=== PATIENT | male | born 1965 | race Caucasian/White ===

== ENCOUNTER 2017-01-27 06:55 | Day surgery (SDC) | payer OTHER ==
[~2017-01-27] VITALS: Ht 170.2 cm; Wt 120.0 kg
[~2017-01-27 06:55] MED LIST: Ecotrin PO; HYDROCODON-ACE1 EAC7 PO; METAXALONE800 MG PO; MOTRIN800 MG PO; PRAVACHOL40 MG PO; TYLENOL EXTRA500 MG PO; ULTRAM50 MG PO; ZANTAC300 MG PO
[2017-01-27 07:12] VITALS: BP 148/67
[2017-01-27 11:18] VITALS: BP 118/81
[2017-01-27 12:16] VITALS: BP 124/83
== END 2017-01-27 12:32 | disposition home or self-care (01) ==
LOC: SDC 06:55
PROC: 0SBD4ZZ Excision of Left Knee Joint, Percutaneous Endoscopic Approach (ICD-10-PCS; principal; 2017-01-27)
DX: S83.242A Other tear of medial meniscus, current injury, left knee, initial encounter (principal); M17.12 Unilateral primary osteoarthritis, left knee; X58.XXXA Exposure to other specified factors, initial encounter; Y93.66 Activity, soccer; K21.9 Gastro-esophageal reflux disease without esophagitis; J45.909 Unspecified asthma, uncomplicated; Z82.49 Family history of ischemic heart disease and other diseases of the circulatory system; Z82.61 Family history of arthritis
CPT/HCPCS: J1100; J1885; J2250; J2405; J2795; J3010

== ENCOUNTER 2017-02-01 04:43 | Inpatient (IN) | payer OTHER ==
[~2017-02-01] VITALS: Ht 172.7 cm; Wt 81.9 kg
[2017-02-01 05:17] LABS: CHLORIDE 103 mEq/L (99-109); POTASSIUM 3.9 mEq/L (3.7-5.4); SODIUM 138 mEq/L (136-147)
[2017-02-01 05:18] LABS: GLUCOSE 128 mg/dL (70-99)
[2017-02-01 05:20] LABS: ANION GAP 7 MEQ/L (2-14)
[2017-02-01 05:22] LABS: GFR ESTIMATE (CALCULATED) 36 mL/min/
[2017-02-01 05:23] LABS: UREA NITROGEN (BUN) 18 mg/dL (9-23)
[2017-02-01 05:27] LABS: HEMATOCRIT 47.5 % (38.0-50.0); MCH 29.9 PG (29.0-34.0); MCHC 34.3 G/DL (30.0-36.0); MCV 87.2 FL (86-99); MEAN PLAT.VOLUME 9.7 uM^3 (9.0-12.4); PLATELET COUNT 252 K/uL (156-360); RBC DIS.WIDTH-CV 13.1 % (11.8-14.6); RBC DIS.WIDTH-SD 41.5 % (39-53); RED BLOOD COUNT 5.45 M/uL (4.00-5.50); WHITE BLOOD COUNT 10.1 K/uL (4.1-10.2)
[2017-02-01 05:32] LABS: TOTAL BILIRUBIN 1.2 mg/dL (0.0-1.0)
[2017-02-01 05:33] LABS: ALKALINE PHOSPHATASE 60 IU/L (3-129)
[2017-02-01 05:35] LABS: DIRECT BILIRUBIN 0.4 mg/dL (0.0-0.3)
[2017-02-01 05:36] LABS: LIPASE 759 U/L (1.0-51.0)
[2017-02-01 06:26] LABS: ADD MIUA? NO; BILIRUBIN NEGATIVE; BLOOD NEGATIVE; COLOR YELLOW ((YELLOW)); GLUCOSE (STRIP) NEGATIVE; KETONES NEGATIVE; LEUKOCYTES NEGATIVE; NITRITE NEGATIVE; PROTEIN (STRIP) NEGATIVE; SPECIFIC GRAVITY 1.014 (1.000-1.030); UCUL ADDED? NO; UROBILINOGEN 0.2 MG/DL (0.2-1.0)
[2017-02-01 07:29] LABS: SAMPLE HEMOLYSIS CHECK 0; SAMPLE ICTERIC CHECK 0; SAMPLE LIPEMIA CHECK 0
[2017-02-01 07:40] LABS: SERUM ETHYL ALCOHOL < 10 mg/dL
[2017-02-01 07:51] VITALS: BP 132/85
[2017-02-01 11:37] VITALS: BP 137/80
[2017-02-01] MEDS ORDERED: ROXICODONE5 MG PO (13:30)
[2017-02-01] MEDS ORDERED: TAMSULOSIN HCL0.4 MG PO (13:32)
[2017-02-01] MEDS ORDERED: PRAVACHOL40 MG PO (13:35)
[2017-02-01] MEDS ORDERED: TORADOL10 MG PO ×2 (13:41→13:42)
[2017-02-01 16:25] VITALS: BP 178/91
[2017-02-01 16:44] VITALS: BP 142/86
[2017-02-01 20:22] LABS: INTERNAL CONTROL VALID? YES
[2017-02-01 20:34] VITALS: BP 129/74
[2017-02-01 20:56] LABS: C DIFF TOXIN POSITIVE (NEGATIVE)
[2017-02-01 21:08] LABS: PROBE CHECK PASS
[2017-02-02 00:15] VITALS: BP 123/75
[2017-02-02 06:26] LABS: HEMATOCRIT 44.9 % (38.0-50.0); MCH 30.2 PG (29.0-34.0); MCHC 34.5 G/DL (30.0-36.0); MCV 87.5 FL (86-99); MEAN PLAT.VOLUME 9.5 uM^3 (9.0-12.4); PLATELET COUNT 222 K/uL (156-360); RBC DIS.WIDTH-CV 12.8 % (11.8-14.6); RBC DIS.WIDTH-SD 41.1 % (39-53); RED BLOOD COUNT 5.13 M/uL (4.00-5.50); WHITE BLOOD COUNT 8.2 K/uL (4.1-10.2)
[2017-02-02 06:49] LABS: ALKALINE PHOSPHATASE 55 IU/L (3-129); ANION GAP 7 MEQ/L (2-14); CHLORIDE 102 MEQ/L (99-109); GFR ESTIMATE (CALCULATED) 46 mL/min/; GLUCOSE 100 mg/dL (70-99); SAMPLE HEMOLYSIS CHECK 0; SAMPLE ICTERIC CHECK 0; SAMPLE LIPEMIA CHECK 0; SODIUM 136 MEQ/L (136-147); TOTAL BILIRUBIN 1.3 MG/DL (0.0-1.0); UREA NITROGEN (BUN) 15 mg/dL (9-23)
[2017-02-02 07:53] VITALS: BP 132/72
[2017-02-02 16:13] VITALS: BP 143/81
[2017-02-03 01:31] VITALS: BP 126/71
[2017-02-03 06:58] LABS: MCH 29.8 PG (29.0-34.0); MCHC 34.2 G/DL (30.0-36.0); MCV 87.2 FL (86-99); MEAN PLAT.VOLUME 10.1 uM^3 (9.0-12.4); PLATELET COUNT 236 K/uL (156-360); RBC DIS.WIDTH-CV 12.6 % (11.8-14.6); RBC DIS.WIDTH-SD 40.2 % (39-53); RED BLOOD COUNT 4.93 M/uL (4.00-5.50); WHITE BLOOD COUNT 7.8 K/uL (4.1-10.2)
[2017-02-03 07:09] VITALS: BP 172/101
[2017-02-03 07:26] LABS: ALKALINE PHOSPHATASE 51 IU/L (3-129); ANION GAP 7 MEQ/L (2-14); CHLORIDE 106 MEQ/L (99-109); GFR ESTIMATE (CALCULATED) 46 mL/min/; GLUCOSE 90 mg/dL (70-99); LIPASE 15 U/L (1.0-51.0); SAMPLE HEMOLYSIS CHECK 0; SAMPLE ICTERIC CHECK 0; SAMPLE LIPEMIA CHECK 0; SODIUM 138 MEQ/L (136-147); UREA NITROGEN (BUN) 19 mg/dL (9-23)
[2017-02-03 07:27] LABS: TOTAL BILIRUBIN 0.9 MG/DL (0.0-1.0)
[2017-02-03 16:43] VITALS: BP 138/72
[2017-02-03 22:55] VITALS: BP 128/68
[2017-02-04 07:02] VITALS: BP 158/62
[2017-02-04] MEDS ORDERED: ZOFRAN8 MG PO (10:55)
[2017-02-04] MEDS ORDERED: METRONIDAZOLE500 MG PO (10:55)
[2017-02-04] MEDS ORDERED: TAMSULOSIN HCL0.4 MG PO (10:55)
[2017-02-04] MEDS ORDERED: TORADOL10 MG PO (10:55)
[2017-02-04 11:03] LABS: WHITE BLOOD COUNT 12.6 K/uL (4.1-10.2)
[2017-02-04 11:04] LABS: EOSINOPHIL (%) 0.1 % (0-5); HEMATOCRIT 46.5 % (38.0-50.0); IMMATURE GRANULOCYTE (%) 0.6 % (0.0-0.7); IMMATURE GRANULOCYTE COUNT 0.1 K/uL; INSTRUMENT ABS NEUTROPHIL CT 9.5 K/uL; MCH 30.8 PG (29.0-34.0); MCHC 35.3 G/DL (30.0-36.0); MCV 87.2 FL (86-99); MEAN PLAT.VOLUME 9.9 uM^3 (9.0-12.4); MONOCYTE (%) 8.1 % (3-12); NEUTROPHIL (%) 75.1 % (45-76); NEUTROPHIL COUNT 9.5 K/uL (1.8-6.4); RBC DIS.WIDTH-CV 12.9 % (11.8-14.6); RBC DIS.WIDTH-SD 40.8 % (39-53); RED BLOOD COUNT 5.33 M/uL (4.00-5.50)
[2017-02-04 11:07] LABS: PLATELET COUNT 309 K/uL (156-360)
[2017-02-04 11:26] LABS: ALKALINE PHOSPHATASE 57 IU/L (3-129); ANION GAP 6 MEQ/L (2-14); CHLORIDE 101 MEQ/L (99-109); GFR ESTIMATE (CALCULATED) 53 mL/min/; POTASSIUM 4.5 MEQ/L (3.7-5.4); SAMPLE HEMOLYSIS CHECK 0; SAMPLE ICTERIC CHECK 0; SAMPLE LIPEMIA CHECK 0; SODIUM 137 MEQ/L (136-147); UREA NITROGEN (BUN) 22 mg/dL (9-23)
[2017-02-04 11:27] LABS: GLUCOSE 161 mg/dL (70-99); TOTAL BILIRUBIN 0.5 MG/DL (0.0-1.0)
== END 2017-02-04 12:28 | disposition home or self-care (01) | DRG 694 ==
LOC: EME 04:43 → 5EAST 06:08 → EDOF 06:08 → 5EAST 07:30
PROVIDERS: Emergency Medicine; Internal Medicine; Nurse Practitioner Adult Health; Pediatrics
DX: N13.2 Hydronephrosis with renal and ureteral calculous obstruction (principal); N17.9 Acute kidney failure, unspecified; E78.00 Pure hypercholesterolemia, unspecified; E86.0 Dehydration; A04.7 Enterocolitis due to Clostridium difficile; K76.0 Fatty (change of) liver, not elsewhere classified; J45.909 Unspecified asthma, uncomplicated; E78.5 Hyperlipidemia, unspecified; K80.20 Calculus of gallbladder without cholecystitis without obstruction; Z87.442 Personal history of urinary calculi
CPT/HCPCS: 74000; 74176; 74420; 80048; 80053; 80076; 81003; 82150 91; 82948; 83630; 83690; 85025; 85027; 87177; 87493; 99281; 99284; C1769; C1876; G0480; J1100; J1644; J2270; J2405; J2765; J3010; J7030; S0028